=== PATIENT | male | born 1960 | race Caucasian/White ===

== ENCOUNTER → 2018-08-01 | Outpatient (CLI) | payer BC ==
--- NOTE | 2018-08-01 16:44 | RAD ---
Chest, 2 views, 08/01/2018: HISTORY: Tobacco abuse Comparison is made to a study from 09/30/2012. The heart size is normal. No pulmonary infiltrate is seen. There is no evidence of pleural fluid. IMPRESSION: No acute cardiopulmonary abnormality is detected. Electronically signed by: Sameer Sanchez MD (08/01/2018 4:41 PM) [facility]
== END | disposition home or self-care (01) ==
LOC: PMG 14:11
PROVIDERS: ATTEND Physician Assistant Medical
DX: R05 Cough (principal); Z87.891 Personal history of nicotine dependence
CPT/HCPCS: 71046

== ENCOUNTER → 2021-07-25 | Outpatient (CLI) | payer BC ==
--- NOTE | 2021-07-25 15:39 | RAD ---
EXAM: LEFT SHOULDER 3 VIEWS. HISTORY: Left shoulder pain. COMPARISON: None. FINDINGS: No fractures are identified. Glenohumeral joint spaces and alignment are maintained. Acromi oclavicular joint spaces and alignment are maintained. There are small inferiorly directed acromial a nd clavicular spurs. IMPRESSION: 1. Interlobular directed clavicular and acromial spurring. Correlate for impingement. Electronically signed by: Tyra Barrios MD (07/25/2021 3:36 PM) [id number]
--- NOTE | 2021-07-25 15:43 | RAD ---
AP and Lateral Views of the Chest 07/25/2021 3:10 PM Indication: Reason: TOBACCO ABUSE / Spl. Instructions: / History: Comparison: Chest radiograph August 01, 2018 Findings: There is no focal consolidation or infiltrate identified. The cardiomediastinal silhouette is within normal limits. There is no evidence of pneumothorax or pleural effusion. No acute osseous a bnormalities are identified. Impression: No evidence of acute cardiopulmonary process. Electronically signed by: Ab Dueñas MD (07/25/2021 3:40 PM) [id number]
== END ==
LOC: RAD 15:01
PROVIDERS: ATTEND Physician Assistant Medical
DX: M75.82 Other shoulder lesions, left shoulder (principal); Z72.0 Tobacco use
CPT/HCPCS: 71046; 73030

== ENCOUNTER 2021-08-12 14:20 | Emergency (ER) | payer BC ==
[~2021-08-12] VITALS: Ht 175.3 cm; Wt 60.0 kg
[2021-08-12 14:20] VITALS: BP 130/77
--- NOTE | 2021-08-12 15:14 | PHYS DOC ---
Past History Past Medical History: Arthritis (FADI MO DIRECTOR PATIENT) Past Surgical History: No Surgical History (FADI MO DIRECTOR PATIENT) Alcohol Use: Occasionally (FADI MO DIRECTOR PATIENT) Adult General Chief Complaint Chief Complaint: MECHANICAL FALL HPI HPI Patient is a 60-year-old male patient who presents to the ED today to evaluated after falling this morning. He states he was getting out of bed at 8 AM and rolled his left foot and fell. He states he tried standing up and fell again. Patient denies any loss of consciousness, denies hitting his head on the ground. Denies any neck mid or low back pain. Complaining of mild intermittent left foot pain, left elbow pain, right tyler pain. Describes the pain as sharp and worse on weightbearing to the foot and touching the left elbow. Denies anything specifically relieving the pain. (WUFADI POOL DIRECTOR PATIENT) Review of Systems Review of Systems Constitutional: Denies fever or chills [] Eyes: Denies change in visual acuity, redness, or eye pain [] HENT: Denies nasal congestion or sore throat [] Respiratory: Denies cough or shortness of breath [] Cardiovascular: No additional information not addressed in HPI [] GI: Denies abdominal pain, nausea, vomiting, bloody stools or diarrhea [] : Denies dysuria or hematuria [] Musculoskeletal: Reports left foot pain, left elbow pain, right tyler pain. Denies back pain Integument: Denies rash or skin lesions [] Neurologic: Denies headache, focal weakness or sensory changes [] All other systems were reviewed and found to be within normal limits, except as documented in this note. (FADI MO DIRECTOR PATIENT) Allergies Allergies Allergies Coded Allergies Type Severity Reaction Last Updated Verified morphine Allergy Unknown 08/12/21 Yes (FADI MO DIRECTOR PATIENT) Physical Exam Physical Exam Constitutional: Well developed, well nourished, no acute distress, non-toxic appearance. [] HENT: Normocephalic, atraumatic, bilateral external ears normal, oropharynx moist, no oral exudates, nose normal. [] Eyes: PERRLA, EOMI, conjunctiva normal, no discharge. [] Neck: Normal range of motion, no tenderness, supple, no stridor. [] Cardiovascular:Heart rate regular rhythm, no murmur [] Lungs & Thorax: Bilateral breath sounds clear to auscultation [] Abdomen: Bowel sounds normal, soft, no tenderness, no masses, no pulsatile masses. [] Skin: Warm, dry, no erythema, no rash. [] Back: No tenderness, no CVA tenderness. [] Extremities: Left foot with no obvious deformity, small amount of soft tissue swelling noted on top of the foot, tenderness on palpation of the top of the left foot. No navicular bone tenderness, no tenderness on the base of the 5th metatarsal of the left. Full range of motion to the left foot and toes. +2 left pedal pulse. Cap refill less than 2 seconds to left toes. Left elbow with no obvious deformity. Tenderness on palpation of the left lateral elbow. Full range of motion to the left elbow and left upper extremity. Adequate radial, medial, ulnar sensation to the left upper extremity. +2 left radial pulse. Right tib-fib with no deformity. No bruising. Tenderness on palpation of the lateral tyler of the right lower extremity. + Right pedal pulse. Range of motion intact to the right lower extremity. Cap refill less than 2 seconds the right foot. Sensation intact to the right lower extremity Neurologic: Alert and oriented X 3, normal motor function, normal sensory funct ion, no focal deficits noted. Cranial nerves II through XII intact Psychologic: Affect normal, judgement normal, mood normal. [] (FADI MO DIRECTOR PATIENT) Current Patient Data Vital Signs Vital Signs Date Time Temp Pulse Resp B/P (MAP) Pulse Ox O2 Delivery O2 Flow Rate FiO2 08/12/21 14:20 98.4 115 18 130/77 (94) 99 Room Air (FADI MO DIRECTOR PATIENT) EKG EKG [] (FADI MO DIRECTOR PATIENT) Radiology/Procedures Radiology/Procedures []PROCEDURE: TIBIA FIBULA RIGHT EXAMINATION: 3 views of the left elbow, 2 views of the right tibia/fibula and 3 views of the left foot radiographs. COMPARISON: None INDICATION:60 years, Male, fall. FINDINGS: LEFT elbow: No acute fracture, dislocation or subluxation. No bone erosion or periosteal reaction. No soft tissue swelling. Small amount of joint effusion. Right tibia/fibula: No acute fracture, dislocation or subluxation. No soft tissue swelling. Left foot: No acute fracture, dislocation or subluxation. No soft tissue swelli ng. IMPRESSION: No acute osseous process. Electronically signed by: Connie Shipman MD (08/12/2021 3:34 PM) [facility] DICTATED AND SIGNED BY: CONNIE SHIPMAN MD DATE: 08/12/210 CC: FADI MO DIRECTOR PATIENT; RASHEEDA ORDAZ PA ~MTH0 0 PROCEDURE: FOOT LEFT 3V EXAMINATION: 3 views of the left elbow, 2 views of the right tibia/fibula and 3 views of the left foot radiographs. COMPARISON: None INDICATION:60 years, Male, fall. FINDINGS: LEFT elbow: No acute fracture, dislocation or subluxation. No bone erosion or periosteal reaction. No soft tissue swelling. Small amount of joint effusion. Right tibia/fibula: No acute fracture, dislocation or subluxation. No soft tissue swelling. Left foot: No acute fracture, dislocation or subluxation. No soft tissue swelling. IMPRESSION: No acute osseous process. Electronically signed by: Connie Shipman MD (08/12/2021 3:34 PM) [facility] DICTATED AND SIGNED BY: CONNIE SHIPMAN MD DATE: 08/12/21 1530 CC: FADI MO APRN; RASHEEDA ORDAZ PA ~MTH0 0 PROCEDURE: ELBOW LEFT 3V EXAMINATION: 3 views of the left elbow, 2 views of the right tibia/fibula and 3 views of the left foot radiographs. COMPARISON: None INDICATION:60 years, Male, fall. FINDINGS: LEFT elbow: No acute fracture, dislocation or subluxation. No bone erosion or periosteal reaction. No soft tissue swelling. Small amount of joint effusion. Right tibia/fibula: No acute fracture, dislocation or subluxation. No soft tissue swelling. Left foot: No acute fracture, dislocation or subluxation. No soft tissue swelling. IMPRESSION: No acute osseous process. Electronically signed by: Connie Shipman MD (08/12/2021 3:34 PM) [facility] DICTATED AND SIGNED BY: CONNIE SHIPMAN MD DATE: 08/12/21 1530 CC: FADI MO DIRECTOR PATIENT; RASHEEDA ORDAZ PA ~MTH0 0 (FADI MO APRN) Heart Score C/O Chest Pain: N/A Risk Factors: Risk Factors: DM, Current or recent (<one month) smoker, HTN, HLP, family history of CAD, obesity. Risk Scores: Risk Factors: DM, Current or recent (<one month) smoker, HTN, HLP, family history of CAD, obesity. (FADI MO APRN) Course & Med Decision Making Course & Med Decision Making Pertinent Labs and Imaging studies reviewed. (See chart for details) This is a 60-year-old male patient presented to the ED today complaining of left elbow pain, left foot pain right tyler pain, symptoms began this morning after he fell. Left elbow x-rays, left foot x-rays, right tib-fib x-rays are negative for any acute findings, ice elevation encouraged. OTC pain relievers. Follow-up with PCP in 1 to 2 weeks (FADI MO APRN) Dragon Disclaimer Dragon Disclaimer This electronic medical record was generated, in whole or in part, using a voice recognition dictation system. (FADI MO APRN) Attending Co-Sign The patient was seen and interviewed as well as examined at the bedside. The chart was reviewed. The case was discussed. Agree with the plan of care. (KASH ROGERS DO) Departure Departure: Impression: Primary Impression: Fall Additional Impressions: Left elbow contusion Sprain of left foot Contusion of right lower leg Disposition: 01 HOME / SELF CARE / HOMELESS Condition: STABLE (follow u) Referrals: RASHEEDA ORDAZ (PCP) follow up next week Patient Instructions: Elbow Contusion, [id number], Foot Sprain-Brief Additional Instructions: Your left elbow x-rays, left foot x-rays and right tibia-fibula x-rays are negative for any acute findings please ice and applied to the affected areas, follow-up with your own doctor in the next 1 to 2 weeks. Problem Qualifiers Primary Impression: Fall Encounter type: initial encounter Qualified Codes: W19.XXXA - Unspecified fall, initial encounter Additional Impressions: Left elbow contusion Encounter type: initial encounter Qualified Codes: S50.02XA - Contusion of left elbow, initial encounter Sprain of left foot Encounter type: initial encounter Qualified Codes: S93.602A - Unspecified sprain of left foot, initial encounter Contusion of right lower leg Encounter type: initial encounter Qualified Codes: S80.11XA - Contusion of right lower leg, initial encounter FADI MO APRN Aug 12, 2021 15:14 KASH ROGERS DO Aug 13, 2021 14:35
--- NOTE | 2021-08-12 15:37 | RAD ---
EXAMINATION: 3 views of the left elbow, 2 views of the right tibia/fibula and 3 views of the left caren t radiographs. COMPARISON: None INDICATION:60 years, Male, fall. FINDINGS: LEFT elbow: No acute fracture, dislocation or subluxation. No bone erosion or periosteal reaction. No soft tissue swelling. Small amount of joint effusion. Right tibia/fibula: No acute fracture, dislocation or subluxation. No soft tissue swelling. Left foot: No acute fracture, dislocation or subluxation. No soft tissue swelling. IMPRESSION: No acute osseous process. Electronically signed by: Urbano Shipman MD (08/12/2021 3:34 PM) [facility]
== END 2021-08-12 16:45 | disposition home or self-care (01) ==
LOC: ER 14:20
DX: S93.602A Unspecified sprain of left foot, initial encounter (principal); S50.02XA Contusion of left elbow, initial encounter; S80.12XA Contusion of left lower leg, initial encounter; W01.0XXA Fall on same level from slipping, tripping and stumbling without subsequent striking against object, initial encounter; Y93.89 Activity, other specified; Y92.89 Other specified places as the place of occurrence of the external cause; Y99.8 Other external cause status; Z88.5 Allergy status to narcotic agent
CPT/HCPCS: 73080; 73590; 73630; 99284-25